=== PATIENT | male | born 1980 | race Two or more races ===

== ENCOUNTER 2020-08-21 11:13 | Emergency (ER) | payer OTHER ==
[2020-08-21] MEDS: Aspirin 81 MG Tab.Chew PO ONE (11:33)
--- NOTE | 2020-08-21 11:35 | EDM.PDOC ---
ED HPI GENERAL MEDICAL PROBLEM - General Stated Complaint: SOB;CHEST PX Time Seen by Provider: 08/21/20 11:17 Source of Information: Reports: Patient History Limitations: Reports: No Limitations - History of Present Illness INITIAL COMMENTS - FREE TEXT/NARRATIVE: Patient presents with tightness in his chest; he describes it as like "being hugged." He says it has been constant since it started about 16 hours ago, last evening. It feels somewhat similar to the tightness he had a couple weeks ago with Covid, but worse than that. He has been refraining from much exertion or activity with his Covid so doesn't know if the tightness improves or worsens with rest vs exertion. He has been off quarantine for a few days. He denies cough or dyspnea and never had those symptoms. He mostly had fatigue, headache, fever and chest tightness. Generalized Pain Score (Numeric/FACES): 4 - Related Data Allergies Allergy/AdvReac Type Severity Reaction Status Date / Time No Known Allergies Allergy Verified 08/21/20 11:45 Home Meds: Home Meds Glucosam/Chondr/Collagn/Hyalur [Glucosamine & Chondroitin Cap] 1 tab PO BID 07/30/14 [History] Naproxen Sodium [Aleve] 220 mg PO BID PRN 07/30/14 [History] ED ROS GENERAL - Review of Systems Review Of Systems: See Below Constitutional: Reports: Fever (last night). Denies: Malaise, Weakness HEENT: Denies: Throat Pain, Throat Swelling, Vision Change Respiratory: Denies: Shortness of Breath, Wheezing, Cough Cardiovascular: Reports: Chest Pain (just tightness), Other (no history of car diac problems). Denies: Syncope GI/Abdominal: Denies: Abdominal Pain, Diarrhea, Vomiting : Denies: Dysuria, Flank Pain Musculoskeletal: Denies: Neck Pain, Shoulder Pain, Arm Pain, Back Pain, Hand Pain, Leg Pain Skin: Denies: Cyanosis, Jaundice, Mottled, Pallor, Diaphoresis Neurological: Denies: Confusion, Dizziness, Headache, Seizure, Syncope, Trouble Speaking, Difficulty Walking Psychiatric: Denies: Agitation, Anxiety, Confusion ED EXAM, GENERAL - Physical Exam Exam: See Below Exam Limited By: No Limitations General Appearance: Alert, WD/WN, No Apparent Distress Eye Exam: Bilateral Eye: EOMI, Normal Inspection, PERRL Ears: Normal External Exam, Hearing Grossly Normal Nose: Normal Inspection, No Blood Throat/Mouth: Normal Inspection, Normal Voice, No Airway Compromise Head: Atraumatic, Normocephalic Neck: Normal Inspection, Full Range of Motion Respiratory/Chest: No Respiratory Distress, Lungs Clear, Normal Breath Sounds, No Accessory Muscle Use Cardiovascular: Regular Rate, Rhythm, No Murmur GI/Abdominal: Normal Bowel Sounds, No Distention Back Exam: Normal Inspection, Full Range of Motion. No: CVA Tenderness (L), CVA Tenderness (R) Extremities: Normal Inspection, Normal Range of Motion Neurological: Alert, Oriented, Normal Cognition, No Motor/Sensory Deficits Psychiatric: Normal Affect, Normal Mood Skin Exam: Warm, Dry, Intact, Normal Color, No Rash Course - Vital Signs Last Recorded V/S: Last Vital Signs Temp 97.1 F 08/21/20 11:20 Pulse 61 08/21/20 13:45 Resp 15 08/21/20 13:45 BP 120/79 08/21/20 13:45 Pulse Ox 98 08/21/20 13:45 - Orders/Labs/Meds Orders: Active Orders 24 hr Category Date Time Status Peripheral IV Care [RC] . DIRECTED Care 08/21/20 11:47 Active Sodium Chloride 0.9% [Saline Flush] Med 08/21/20 11:47 Active 10 ml FLUSH Q8HR PRN Peripheral IV Insertion Adult [OM.PC] Routine Oth 08/21/20 11:47 Ordered Medication Orders Sodium Chloride (Saline Flush) 10 ml FLUSH Q8HR PRN PRN Reason: keep vein open Meds: Medications Generic Name Dose Route Start Last Admin Trade Name Freq PRN Reason Stop Dose Admin Sodium Chloride 10 ml 08/21/20 11:47 Saline Flush FLUSH Q8HR PRN keep vein open Discontinued Medications Generic Name Dose Route Start Last Admin Trade Name Freq PRN Reason Stop Dose Admin Aspirin Confirm 08/21/20 11:33 08/21/20 13:38 Aspirin Administered 08/21/20 11:34 Not Given Dose 324 mg .ROUTE .STK-MED ONE Aspirin 324 mg 08/21/20 11:30 08/21/20 11:33 Aspirin PO 08/21/20 11:31 324 mg ONETIME ONE Administration - Re-Assessments/Exams Free Text/Narrative Re-Assessment/Exam: 08/21/20 14:01 EKG, CXR, troponin, D-dimer all normal. Discussed findings with patient. No evidence of heart problems or pneumonia. Most likely sequelae from his recent Covid infection. Advised follow up with PCP if not improving. Stable at discharge. Departure - Departure Time of Disposition: 13:58 Disposition: Home, Self-Care 01 Condition: Good Clinical Impression: Feeling of chest tightness - Discharge Information Additional Instructions: Follow up with your PCP in 3-5 days if this persists. Recheck sooner if worsening. Sepsis Event Note (ED) - Focused Exam Vital Signs: Vital Signs Temp Pulse Resp BP Pulse Ox 08/21/20 13:45 61 15 120/79 98 08/21/20 13:30 60 18 125/78 98 08/21/20 13:15 60 15 118/76 97 08/21/20 13:00 62 14 120/82 98 08/21/20 12:45 65 12 120/78 99 08/21/20 12:15 66 16 125/84 98 08/21/20 12:00 65 19 127/86 97 08/21/20 11:45 70 14 112/88 97 08/21/20 11:30 68 14 131/68 97 08/21/20 11:20 97.1 F 67 14 128/87 98 - My Orders Last 24 Hours: My Active Orders 08/21/20 11:47 Peripheral IV Care [RC] . DIRECTED Sodium Chloride 0.9% [Saline Flush] 10 ml FLUSH Q8HR PRN Peripheral IV Insertion Adult [OM.PC] Routine - Assessment/Plan Last 24 Hours: My Active Orders 08/21/20 11:47 Peripheral IV Care [RC] . DIRECTED Sodium Chloride 0.9% [Saline Flush] 10 ml FLUSH Q8HR PRN Peripheral IV Insertion Adult [OM.PC] Routine
[2020-08-21] MEDS ORDERED: Sodium Chloride 0.9% 10 ML Syringe FLUSH PRN (11:47)
--- NOTE | 2020-08-21 12:04 | CR ---
[id number] RAD/RAD Chest PA And Lateral EXAM: RAD Chest PA And Lateral INDICATION: CHEST TIGHTNESS. COMPARISON: None. DISCUSSION: Cardiomediastinal silhouette is normal in size and contour. No infiltrate, effusion, pneumothorax, or edema. IMPRESSION: No acute cardiopulmonary abnormality. Jere Rivera DO 08/21/20 [id number] Thank you for allowing us to participate in the care of your patient.
[2020-08-21] MEDS: Aspirin 81 MG Tab.Chew ONE (13:38)
== END 2020-08-21 14:00 | disposition home or self-care (01) ==
LOC: KA.ED 11:13
DX: R07.89 Other chest pain (principal); R53.83 Other fatigue; R51.9 Headache, unspecified; R50.9 Fever, unspecified
CPT/HCPCS: 71046; 99283; 99285; A9270; 93005